=== PATIENT | female | born 1950 | race Caucasian/White ===

== ENCOUNTER 2019-08-25 01:02 | Outpatient (CLI) | payer MEDICARE, SELFPAY ==
[2019-08-25 19:08] LABS: SARS-CoV-2 RNA PCR Negative
== END 2019-08-25 01:03 | disposition home or self-care (01) ==
LOC: ANHCOVIDDT 01:02
PROVIDERS: PCP Nurse Practitioner Family; Visit Provider Plastic Surgery
DX: Z01.812 Encounter for preprocedural laboratory examination (principal); Z11.59 Encounter for screening for other viral diseases
CPT/HCPCS: 87635; C9803; U0003

== ENCOUNTER 2019-08-27 01:06 | Day surgery (SDC) | payer MEDICARE, SELFPAY ==
[2019-08-24 13:47] VITALS: BMI 25.7
--- NOTE | 2019-08-26 18:38 | HP_ITS ---
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 HISTORY: The patient is 69. Patient of Cris Reed APRN. She is referred for evaluation of a nonhealing area on the right upper nasal bridge. This has been present for several years, she thinks perhaps 3. It has been treated with liquid nitrogen a few times. Today, it shows areas that are hyperkeratotic with white, firm keratinous skin elevating above other skin level and the base surrounds this with an indistinct pink margin. The patient has been advised to have this surgically removed, should be done with frozen section. She may require local tissue transfer or perhaps full-thickness skin graft to close the wound. PAST MEDICAL HISTORY: ALLERGIES: SHE HAS AN ALLERGY TO SULFA. MEDICATIONS: She takes estradiol and levothyroxine. PAST SURGICAL HISTORY: Prior surgeries include a left lumpectomy in 2011 and a tonsillectomy years ago. She has no chronic illnesses and sees no specialist. REVIEW OF SYSTEMS: Indicates just the hypothyroidism and a history of shingles and she says she had breast cancer in 2011. FAMILY HISTORY: Noncontributory. SOCIAL HISTORY: She lives in [place]. She is retired. She is to [employer]. PHYSICAL EXAMINATION: GENERAL: She is informative, cooperative. She is 5 feet 1 inch, weighs 136 pounds, in no distress. HEENT: Remarkable for the mass as noted above. There is no palpable adenopathy. No other significant skin lesions. CHEST: Clear to auscultation. HEART: Regular rate and rhythm by palpation. ABDOMEN: Soft, nontender. EXTREMITIES: Normal. ASSESSMENT: Ulcerated skin neoplasm of the right upper lateral nasal bridge. PLAN: Excision with frozen section and reconstruction as indicated to be under sedation anesthetic. D I MT: Aftab
--- NOTE | 2019-08-27 07:12 | WPDHPUPDATE1 ---
History and Physical Update Update Date/Time: 08/27/19 07:12 History and Physical has been reviewed, including an updated exam of the patient. There are NO changes in the patient's condition. Risks, benefits, and alternatives have been discussed and questions answered. Patient agrees to proceed with procedure.
[2019-08-27 07:55] VITALS: BP 133/69; PULSE 87; RESP 20; TEMP 36.2; O2SAT 100
[2019-08-27] MEDS: LACTATED RINGERS 1,000 ML 30 ML IV CONT (08:48)
--- NOTE | 2019-08-27 08:50 | WPDANESEPPF ---
Anes - Initial Pre Proc Eval Procedure: Operation Date: 08/27/19 09:30 Proposed Procedures p Excision Of Ulcerated Keratotic Neoplasm Right Upper Nasal Bridge With Frozen Section, Possible Full Thickness Skin Graft, Possible Local Tissue Transfer - Aravind Samaniego MD Date/Time: 08/27/19 08:50 Surgeon: Aravind Samaniego MD Pre Op Diagnosis: ulcerated keratotic neoplasm rt upper nasal bridge Patient Data Age: 69 Gender: F Height: 5 ft 1 in Weight: 62 kg Last Vital Signs Temp 36.2 C L 08/27/19 07:55 Pulse 87 08/27/19 07:55 Resp 20 08/27/19 07:55 BP 133/69 08/27/19 07:55 Pulse Ox 100 08/27/19 07:55 Allergies Allergy/AdvReac Type Severity Reaction Status Date / Time Sulfa (Sulfonamide Allergy Severe HIVES/SWELL Verified 08/27/19 08:29 Antibiotics) ING Home Medications Medication Instructions Recorded Confirmed Type calcium carbonate-vitamin D3 1 cap PO DAILY 08/24/19 08/24/19 History [Calcium 600 + D(3)] cholecalciferol (vitamin D3) 125 mcg PO DAILY 08/24/19 08/27/19 History estradiol 1 mg PO HS 08/24/19 08/27/19 History levothyroxine 50 mcg PO DAILY 08/24/19 08/27/19 History Patient hx anesthesia problems: none Family hx anesthesia problems: none [facility] Past Medical History Medical History (Updated 08/27/19 @ 08:50 by Seng Epstein MD) Hypothyroidism Surgical History Surgical History (Updated 08/27/19 @ 08:51 by Seng Epstein MD) S/P breast lumpectomy Family History Family History Mother Family history of rheumatoid arthritis Father Family history of diabetes mellitus in first degree relative Social History Social History Smoking status: Never smoker Alcohol intake: current Drinks per week: 2 Alcohol use details: BEER Living arrangements: with family Spiritual care concerns: No Anes - Eval Final PreProcedure Day of Procedure 08/27/19 08:50 Patient weight: normal Lungs: clear to auscultation Airway: Mallampati scale class II Last oral intake: >/= 8 hours ASA classification: II Emergent: no Anesthetic plan: proceed Anesthesia type and monitoring: general GIVS and standard monitoring Informed Consent: The patient's anesthetic plan and its attendant risks and benefits were discussed with the patient/family/POA. Questions were solicited and answers provided to the satisfaction of the patient/family/POA.
[2019-08-27] MEDS: LIDO 1%/EPINEPHRINE 1:100,000 20 ML VIAL INFILTRATE (10:05)
--- NOTE | 2019-08-27 10:34 | SUR.OPER ---
EBL:10cc
[2019-08-27 10:55] VITALS: BP 111/59; PULSE 72; RESP 16
[2019-08-27 11:05] VITALS: BP 127/68; PULSE 69; RESP 16
--- NOTE | 2019-08-27 11:34 | PM.PROC ---
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 She was then taken to the operating room and placed supine on the operating table. A time-out was held and confirmed. She was given IV sedation and her entire Face was prepped and draped in the usual fashion. A marking was made carefully around the Clinical extent of the hyperkeratotic lesions. The area was widely infiltrated with 1% lidocaine with epinephrine. The full-thickness skin ellipse was made and the most superior aspect marked with a suture for 12:00 o'clock. The specimen was sent to pathology for frozen section. The report is that the neoplasm is a squamous cell carcinoma in situ and the margins are free on the 1st attempt. A local tissue transfer was designed an incision running tension to the defect up to the mid forehead between the eyebrows. This was widely undermined. It could be rotated into position to close this wound without significant elevation of the nasal tip. The flap was inset with 4-0 Vicryl in the dermis and 6 0 running nylon to close the skin. She will be discharged home with instructions in wound care and follow-up and the recommendation to use an ice bag. She normally uses Tylenol or ibuprofen and did not wish additional medication. Anesthesia: MAC Surgeon: Aravind Samaniego MD Estimated blood loss (mL): 2 Drains: No Packing: No Pathology: yes Complications: No immediate complications Condition: stable Disposition: same day
[2019-08-27 11:35] VITALS: BP 125/78; PULSE 70; RESP 16
== END 2019-08-27 11:54 | disposition home or self-care (01) ==
PROVIDERS: PCP Nurse Practitioner Family; Visit Provider Plastic Surgery
PROC: (CPT 14060; principal; 2019-08-27 09:30)
DX: C44.321 Squamous cell carcinoma of skin of nose (principal); E03.9 Hypothyroidism, unspecified
CPT/HCPCS: 14060; 87635; 88305; 88331; A9270; C9803; J2250; J2405; J2704; J3010; J7120; U0003